=== PATIENT | male | born 1975 | race Caucasian/White ===

== ENCOUNTER 2023-09-18 13:37 | Outpatient (REF) | payer MEDICAID, SELFPAY ==
[2023-09-18 15:57] LABS: MANUAL DIFF FLAG NO
[2023-09-18 16:15] LABS: Basophils Percent Auto 0.3 % (0-2); Eosinophils Absolute Auto 0.2 X10*3/uL (0.0-0.4); Eosinophils Percent Auto 2.5 % (0-4); Hematocrit 39.8 % (42.0-52.0); Hemoglobin 13.3 g/dl (14.0-18.0); Imm Gran Abs Auto 0.02 X10*3/uL (0.00-0.03); Imm Gran Pct Auto 0.3 % (0.0-0.4); Lymphocytes Percent Auto 28.2 % (20-40); Mean Corpuscular HGB Conc 33.4 g/dl (31.0-36.0); Mean Corpuscular Hemoglobin 30.3 pg (27.0-33.0); Mean Corpuscular Volume 90.7 fL (80.0-98.0); Mean Platelet Volume 9.3 fL (9.4-12.4); Monocytes Absolute Auto 0.5 X10*3/uL (0.1-1.2); Monocytes Percent Auto 7.6 % (2-11); Neutrophils Absolute Auto 4.3 x10*3/uL (2.0-8.3); Neutrophils Percent Auto 61.1 % (45-73); Platelet Count 256 X10*3/uL (160-400); Red Blood Count 4.39 X10*6/uL (4.60-5.80); Red Cell Distribution Width 13.1 % (11.0-16.0); White Blood Count 7.1 X10*3/uL (4.8-10.8)
[2023-09-18 16:33] LABS: Alanine Aminotransferase 13 U/L (0-40); Albumin Level 4.5 g/dL (3.5-5.0); Alkaline Phosphatase 70 U/L (39-117); Anion Gap 13 (12-20); Aspartate Amino Transferase 21 U/L (5-37); Bilirubin Total 0.4 mg/dL (0.0-1.0); Blood Urea Nitrogen 19 mg/dL (9-16); Calcium 10.3 mg/dL (8.4-10.2); Carbon Dioxide 25 mmol/L (22-29); Chloride 106 mmol/L (96-108); Estimated Glomerular Filt Rate > 60; Glucose Random 75 mg/dL (60-115); Potassium 4.1 mmol/L (3.3-5.1); Sodium 140 mmol/L (135-145)
[2023-09-18 16:49] LABS: TSH reflex Free T4 1.61 uIU/mL (0.32-4.0)
[2023-09-18 17:05] LABS: Folate 13.5 ng/mL (> or = 4.0); Vitamin B12 282 pg/mL (200-900)
[2023-09-21 07:32] LABS: Absolute CD3 Count 1276 cells/uL (840-3060); Absolute CD4 Count 549 cells/uL (490-1740); Absolute CD8 Count 712 cells/uL (180-1170); Absolute Lymphocytes 2265 cells/uL (850-3900); CD4 CD8 Ratio 0.77 (0.86-5.00); Percent CD3 Cells 56 % (57-85); Percent CD4 Cells 24 % (30-61); Percent CD8 Cells 31 % (12-42)
[2023-09-21 11:59] LABS: HIV RNA PCR Qn Copies <20 DETECTED copies/mL (NOT DETECTED); HIV RNA PCR Qn Log Copies <1.30 DETECTED (NOT DETECTED)
[2023-09-22 06:34] LABS: RPR Rapid Plasma Reagin NON-REACTIVE (NON-REACTIVE)
== END 2023-09-18 13:38 | disposition home or self-care (01) ==
LOC: HO.HHCL 13:37
PROVIDERS: Referring Provider Student in an Organized Health Care Education/Training Program; Visit Provider Nurse Practitioner Primary Care
DX: R41.3 Other amnesia (principal); B20 Human immunodeficiency virus [HIV] disease
CPT/HCPCS: 36415; 80053; 82607; 82746; 84443; 85025; 86359; 86360; 86592; 87536

== ENCOUNTER 2024-08-12 10:56 | Outpatient (REF) | payer MEDICAID, SELFPAY ==
[2024-08-16 10:58] LABS: HCV Log PCR <1.18 NOT DETECTED Log IU/mL (NOT DETECTED); HepC Viral Load <15 NOT DETECTED IU/mL (NOT DETECTED)
[2024-08-16 16:18] LABS: HIV RNA PCR Qn Copies 303 copies/mL (NOT DETECTED); HIV RNA PCR Qn Log Copies 2.48 (NOT DETECTED)
== END 2024-08-12 10:57 | disposition home or self-care (01) ==
LOC: HO.HHCL 10:56
PROVIDERS: Visit Provider Student in an Organized Health Care Education/Training Program
DX: B20 Human immunodeficiency virus [HIV] disease (principal)
CPT/HCPCS: 36415; 87522; 87536

== ENCOUNTER 2025-03-14 11:02 | Outpatient (REF) | payer MEDICAID, SELFPAY ==
--- OUTSIDE RECORDS SUMMARY | 2025-03-14 12:43 | XMS_ITS | Clinical Summary ---
Author Organization [facility] Address [address] [place] [address] Care Team Providers Care Body And Frame Technician Name Role Phone Unavailable Primary Care Provider Unavailabl e Source Comments PLEASE NOTE, if this patient is a minor, it may be UNLAWFUL to discuss sensitive information that is contained in these records (such as FAMILY PLANNING, MENTAL HEALTH or SUBSTANCE ABUSE) with the minor patient's parent or other person without the patient's specific authorization.[facility] Medications acetaminophen (TYLENOL) 500 mg tablet Take 500 mg by mouth every 6 (six) hours as needed 4 Active BIKTARVY 50-200-25 mg tab Take 1 Tablet by mouth once daily Active cyanocobalamin (VITAMIN B-12) 500 mcg tablet Take 500 mcg by mouth every morning Active melatonin 5 mg tabIndications:Pe rsistent disorder of initiating or maintaining sleep Take 1 Tablet by mouth nightly at bedtime as needed for sleep 4 Active methadone (DOLOPHINE) 10 mg/mL concentrated solutionIndicatio ns:Opioid dependence in remission (HCC-CMS) Take 80 mg by mouth daily Active prazosin (MINIPRESS) 5 mg capsuleIndication s:PTSD (post-traumatic stress disorder) Take 1 Capsule by mouth nightly at bedtime for 30 days 30 Capsule 5 Active PARoxetine (PAXIL) 20 mg tabletIndications :Severe episode of recurrent major depressive disorder, with psychotic features (HCC-CMS),PTSD (post-traumatic stress disorder) Take 1 Tablet by mouth every morning for 30 days 30 Tablet 5 Active QUEtiapine (SEROQUEL) 300 mg tabletIndications :Severe episode of recurrent major depressive disorder, with psychotic features (HCC-CMS) Take 1 Tablet by mouth nightly at bedtime for 30 days 30 Tablet 5 Active mirtazapine (REMERON) 30 mg tabletIndications :Severe episode of recurrent major depressive disorder, with psychotic features (HCC-CMS) Take 1 Tablet by mouth nightly at bedtime 30 Tablet Active Active Problems Problem Noted Date Diagnosed Date Persistent disorder of initiating or maintaining sleep 07/26/2024 Assessment & Plan (07/26/2024 2:22 PM EDT): Assessment: Difficulty falling asleep, staying asleep and reversed sleep cycle. Plan: Add trazodone for sleep; continue melatonin; provide sleep hygiene education. Severe episode of recurrent major depressive disorder, with psychotic features (HCC-CMS) 06/08/2024 Assessment & Plan (12/08/2024 1:24 PM EST): A: Not improving Medication Changes: Increase to Seroquel 300 mg at night Increase to mirtazapine to 30 mg at night Increase Paxil 20 mg daily in morning Referrals/Follow-up: 1 month Sleep study referral to be coordinated Communication with PCP regarding sleep study referral Patient Education: Medication compliance importance discussed Appointment adherence emphasized Instructions for medication refills provided Assessment & Plan (11/10/2024 3:46 PM EST): A: worsening depression with psychotic feature Medication Changes: Discontinue olanzapine Start Seroquel (quetiapine) 100mg at night Reduce mirtazapine to 15mg at night Continue Paxil 10mg daily in morning Referrals/Follow-up: Sleep study referral to be coordinated Follow-up appointment scheduled for December 08 at 12 noon Communication with PCP regarding sleep study referral Patient Education: Medication compliance importance discussed Appointment adherence emphasized Instructions for medication refills provided Assessment & Plan (08/18/2024 1:44 PM EST): Assessment: anhedonia, social isolation, feelings of worthlessness and hopelessness, poor concentration, low energy, poor sleep at night but sleeps during day Plan: Stop sertraline, stop Trazodone Start Paxil 10 mg continue mirtazapine 60mg refer for psychotherapy; monitor for suicidal ideation. Continue Olanzapine Sleep hygiene reinforced Assessment & Plan (07/26/2024 5:26 PM EDT): Assessment: Persistent low mood, anhedonia, social isolation, feelings of worthlessness and hopelessness, poor concentration, low energy. Plan: Increase sertraline to 100mg daily; continue mirtazapine 60mg at bedtime for now but will start to taper off next visit since it appears to be ineffective; refer for psychotherapy; monitor for suicidal ideation. 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 Plan: Continue increased dose of sertraline; consider adding buspirone if symptoms persist; encourage relaxation techniques. PTSD (post-traumatic stress disorder) 01/13/2023 Overview (07/21/2024): Last Assessment & Plan: Trauma history. Presenting complaints: Anxiety, depression, flashbacks, hypervigilance, poor sleep with nightmares, hallucinations (doorknocking, shadows). Poor appetitite, underweight. He is once again c/o auditory hallucinations (although at last visit reported resolution of hallucinations). Sleeping a little better, will increase to Prazosin 5 mg at bedtime. Continue Olanzapine 20 mg plus 5 mg daily at bedtime, Mirtazapine 60 mg at bedtime, Sertraline 50 mg daily. There are serious adverse drug interactions between Methadone and other drugs, including antipsychotics r/t risk of arrhythmia, Olanzapine is probably the safest option. Pt has had EKG and understands regular monitoring will be necessary. We have reviewed risks and benefits of treatments as well as no treatment. He makes the informed decision to take this medication. On 11/09/2023 provider informed the patient that I would be retiring so we would try to meet frequently so he would be stable and ready for transfer to new prescriber. F/U with me in 6 weeks. He will also come to [facility] to sign request for letter supporting keeping his dog as emotional support animal. He agrees with the plan. Assessment & Plan (12/08/2024 1:27 PM EST): Post-Traumatic Stress Disorder: Assessment: Not improving Plan: Continue prazosin; Increase Paxil 20 mg daily Therapy referral has been made. Assessment & Plan (11/10/2024 3:47 PM EST): Post-Traumatic Stress Disorder: Assessment: Nightmares related to brother's murder, hypervigilance. Plan: Continue prazosin; Re-Start Paxil 10 mg daily encourage engagement in trauma-focused therapy. Assessment & Plan (08/18/2024 1:36 PM EST): Post-Traumatic Stress Disorder: Assessment: Nightmares related to brother's murder, hypervigilance. Plan: Continue prazosin; Start Paxil 10 mg daily encourage engagement in trauma-focused therapy. Assessment & Plan (07/26/2024 2:08 PM EDT): Post-Traumatic Stress Disorder: Assessment: Nightmares related to brother's murder, hypervigilance. Plan: Continue prazosin; encourage engagement in trauma-focused therapy. Homeless 10/31/2022 Living in homeless jail 10/31/2022 Opioid dependence ([facility]) 10/31/2022 Overview (07/21/2024): Last Assessment & Plan: Patient is finding Methadone helpful to control cravings, but is not totally abstinent of illicit substances. Urged to avoid street drugs including pills allegedly Klonopin, as they could contain other dangerous ingredients. Additionally reviewed that Klonopin and other benzos were habit forming with risk of addiction, and dangerous in combination with opiates. Assessment & Plan (12/08/2024 1:27 PM EST): Assessment: patient reports sustained remission. Plan: Continue methadone maintenance therapy; patient has access to Narcan and knows how to use Assessment & Plan (07/26/2024 2:19 PM EDT): Assessment: patient reports sustained remission. Plan: Continue methadone maintenance therapy; patient has access to Narcan and knows how to use Tobacco dependence syndrome 10/31/2022 Overview (07/21/2024): Last Assessment & Plan: Pt smokes 6 cigarettes a day -advised to stop smoking -seems to anxious now to stop -will continue discussion w PCP at upcoming apt this month Chronic hepatitis C ([facility]) 07/04/2020 Overview (07/21/2024): Fibrosure F1-F2 Took 12 weeks of Epclusa 8395-6910 HCV RNA<15 02/12/23 Last Assessment & Plan: Fibrosure F1-F2 Took 12 weeks of Epclusa [id number] HCV RNA<15 02/12/23 Human immunodeficiency virus infection ([facility]CC-[facility]) 07/04/2020 Overview (07/21/2024): diagnosed in April 2020, entry CD4: 138 (07/05/20) entry genotype (07/05/20): PI resistance mutations M46I, Q58E, L63P, I64L, V77I, L90M; resistant to IDV, NFV, SQV, ATV HLA-[id number] negative (07/05/20), G6PD normal (07/05/20), Toxoplasma IgG negative (07/05/20) ARV hx: start Biktarvy 07/04/20 Last Assessment & Plan: 02/2023 CD4 592, VL < 20 02/2023 Quantiferon neg, Hep C UD VL ,RPR neg, cr wnl, LFTs wnl, hb 12.9 normocytic 2021 Cg/gn neg , 2020 syphilis neg 2019 Toxoplasma IgG neg , Measles and rubella immune , mumps not immune, varicella immune, Hep A borderline serologies, Hep not immune ,HLA [id number] Neg -Continue Biktarvy daily -reports NOT to be compliant lately -missing several doses because forgets -discussed in length the importance to take daily -pt interested in [facility]-referred today -vaccines: none reported, refuse flu and Covid 19 vaccine offered today, not immune to mumps -will need to offer at next visit if CD4 > 200 , Hep A borderline serologies, Hep not immune -will need to repeat hep A and B at next set of labs and offer vaccine if needed -HIV labs today -will need to do STI panel at next apt -if risk factors will need to do anal pap -pt w poor appetite -requesting refills on ensure -Elizabeth S. Will help pt with TID px to see if insurance will approve Family History Medical History Relation Name Comments No Known Problems Father No Known Problems Mother Anxiety disorder Sister No Known Problems Son Relation Name Status Comments Father Alive Mother Alive Sister Alive Son Alive 2 Social History Tobacco Use Types Packs/Day Years Used Date Smoking Tobacco: Every Day Cigarettes 0.5 35.4 Started: 1989 Smokeless Tobacco: Never Tobacco Cessation:Ready to Q uit: No; Counseling Given: Yes Alcohol Use Standard Drinks/Week Comments Not Currently 0 (1 standard drink = 0.6 oz pur e alcohol) Social Connections Answer Date Recorded Connectedness 0 06/24/2024 Financial Resource Strain Answer Date R ecorded Financial Resource Strain 0 2023 Stress Answer Date Recorded Stress 0 06/24/2024 Physical Activity Answer Date Recorded Physical Activity 0 06/24/2024 Food Insecurity Answer Date Recorded Food 0 07/08/2024 Transportation Needs Answer Date Record ed Transportation 0 06/24/2024 Housing Stability Answer Date Recorded Housing 0 06/24/2024 Safety and Environment Answer Date Rodríguez rded Safety 0 06/24/2024 Utilities Answer Date Recorded Utilities 0 06/24/2024 Employment Answer Date Recorded Stress 0 06/24/2024 Sex and Gender Information Value Date Recorded Sex Assigned at Male 06/23/2024 10:49 AM PDT Legal Sex Male 10:49 AM PDT Gender Identity Male 06/23/2024 10:49 AM PDT Sexual Orientation Not on file Occupation Industry Job Start Date Job End Date unemployed Not on file Not on file Not on file Plan of Treatment Health Maintenance Due Date Last Done Comments Anxiety Screening 1975 Depression Monitoring 1975 Diabetes Screening 1975 Hepatitis B Screening 1975 Imm-Meningococcal (1 - Risk 2-dose series) 1977 Syphilis Screening 11/08/1989 Hypertension Screening (#1) 1993 Imm-MMR (1 of 2 - Risk 2-dos e series) 1993 Imm-DTaP/Tdap/Td (1 - Tdap) 1994 Imm-Hepatitis A (1 of 2 - Ri sk 2-dose series) 1994 Imm-Hepatitis B (1 of 3 - 19 + 3-dose series) 1994 Imm-Pneumococcal (1 of 2 - PCV) 1994 Imm-Zoster, Recombinant (1 of 2) 1994 CT Colonography 2020 Colonoscopy 2020 Colorectal Cancer Screening 2020 FIT/gFOBT 2020 Fecal DNA 2020 Flexible Sigmoidoscopy 2020 [id number]-[id number]-14 ( - season) 2024 Imm-Influenza (#1) 2024 Alcohol and Drug Screen 10/12/2024 Tobacco Cessation Counseling (#1) 07/21/2025 Lipid Screening 06/04/2026 06/04/2021 Imm-HIB Aged Out No longer eligi ble based on patient's age to complete this topic [place]
[2025-03-16 13:48] LABS: HIV RNA PCR Qn Copies 56 copies/mL (NOT DETECTED); HIV RNA PCR Qn Log Copies 1.75 (NOT DETECTED)
== END 2025-03-14 11:03 | disposition home or self-care (01) ==
LOC: HO.HHCL 11:02
PROVIDERS: Visit Provider Internal Medicine
DX: B20 Human immunodeficiency virus [HIV] disease (principal)
CPT/HCPCS: 36415; 87536

== ENCOUNTER 2025-09-11 14:09 | Outpatient (REF) | payer MEDICAID, SELFPAY ==
[2025-09-11 16:20] LABS: MANUAL DIFF FLAG NO
[2025-09-11 16:27] LABS: Hematocrit 37.4 % (42.0-52.0); Hemoglobin 12.3 g/dl (14.0-18.0); Imm Gran Abs Auto 0.00 X10*3/uL (0.00-0.03); Imm Gran Pct Auto 0.0 % (0.0-0.4); Lymphocytes Absolute Auto 2.8 X10*3/uL (1.2-4.9); Mean Corpuscular HGB Conc 32.9 g/dl (31.0-36.0); Mean Corpuscular Hemoglobin 30.5 pg (27.0-33.0); Mean Corpuscular Volume 92.8 fL (80.0-98.0); NRBC Abs Auto 0.000 X10*3/uL (0.0-0.012); NRBC Pct Auto 0.0 /100WBC (0.0-0.2); Platelet Count 238 X10*3/uL (160-400); Red Blood Count 4.03 X10*6/uL (4.60-5.80); White Blood Count 5.1 X10*3/uL (4.8-10.8)
[2025-09-11 16:37] LABS: Alanine Aminotransferase 20 U/L (0-40); Albumin Level 4.7 g/dL (3.5-5.0); Alkaline Phosphatase 81 U/L (39-117); Anion Gap 9 (12-20); Aspartate Amino Transferase 31 U/L (5-37); Blood Urea Nitrogen 21 mg/dL (9-16); Calcium 9.3 mg/dL (8.4-10.2); Carbon Dioxide 27 mmol/L (22-29); Chloride 108 mmol/L (96-108); Cholesterol 206 mg/dL (<200); Estimated Glomerular Filt Rate > 60; HDL Cholesterol 40 mg/dL (>40); Potassium 3.9 mmol/L (3.3-5.1); Sodium 140 mmol/L (135-145); Total Protein 7.5 g/dL (6.5-8.0); Triglycerides 63 mg/dL (<150)
[2025-09-11 16:45] LABS: Alanine Aminotransferase 18 U/L (0-40); Albumin Level 4.7 g/dL (3.5-5.0); Alkaline Phosphatase 83 U/L (39-117); Anion Gap 11 (12-20); Aspartate Amino Transferase 32 U/L (5-37); Blood Urea Nitrogen 21 mg/dL (9-16); Calcium 9.3 mg/dL (8.4-10.2); Carbon Dioxide 26 mmol/L (22-29); Chloride 107 mmol/L (96-108); Cholesterol 208 mg/dL (<200); Estimated Glomerular Filt Rate > 60; HDL Cholesterol 41 mg/dL (>40); Potassium 3.9 mmol/L (3.3-5.1); Sodium 140 mmol/L (135-145); Total Protein 7.4 g/dL (6.5-8.0); Triglycerides 63 mg/dL (<150)
[2025-09-11 18:00] LABS: Reflex LDLD? No
[2025-09-11 19:46] LABS: Reflex LDLD? No
[2025-09-12 07:56] LABS: HBS Num1 4.71 mIU/mL (0-7.99); HBsAGNum1 0.39 S/CO (0.00-0.99); Hepatitis B Surface Antigen Negative (Negative); ~Hepatitis B Surface Antibody NONREACTIVE (Nonreactive)
[2025-09-14 02:34] LABS: TS Negative Control Passed; TS Panel A 0; TS Panel B 0; TS Positive Control Passed; TSpotTB Negative (Negative)
[2025-09-14 11:49] LABS: TS Negative Control Passed; TS Panel A 0; TS Panel B 0; TS Positive Control Passed; TSpotTB Negative (Negative)
[2025-09-15 05:48] LABS: ~Hepatitis A Antibody IgG 0.70 S/CO (0.00-0.99)
== END 2025-09-11 14:10 | disposition home or self-care (01) ==
LOC: HO.HHCL 14:09
PROVIDERS: Internal Medicine; PCP Student in an Organized Health Care Education/Training Program; Visit Provider Student in an Organized Health Care Education/Training Program
DX: Z11.1 Encounter for screening for respiratory tuberculosis (principal); Z11.59 Encounter for screening for other viral diseases; Z11.3 Encounter for screening for infections with a predominantly sexual mode of transmission; B20 Human immunodeficiency virus [HIV] disease
CPT/HCPCS: 36415; 80053; 80061; 82248; 82550; 85025; 86481; 86592; 86706; 86708; 87340